=== PATIENT | male | born 1945 | race Two or more races ===

== ENCOUNTER 2022-10-24 22:51 | Emergency (ER) | payer SELFPAY ==
[~2022-10-24] VITALS: Ht 180.3 cm; Wt 74.0 kg
[2022-10-24 23:11] VITALS: BP 148/65
[2022-10-25] MEDS ORDERED: LIDOCAINE HCL/PF 1% 10 MG/ML 5ML VIAL INFIL ONE (02:15)
[2022-10-25] MEDS ORDERED: ACETAMINOPHEN 325MG TABLET PO ONE (02:15)
[2022-10-25] MEDS ORDERED: BACITRACIN ZINC OINT UDPKT TOP ONE (02:15)
[2022-10-25] MEDS ORDERED: TETANUS, DIPHTHERIA, PERTUSSIS VAC/PF 0.5ML (>10YR OLD) IM ONE (02:15)
[2022-10-25] MEDS ORDERED: TOPUD PO (02:52)
== END 2022-10-25 03:50 | disposition home or self-care (01) ==
LOC: ER 22:51
DX: S61.012A Laceration without foreign body of left thumb without damage to nail, initial encounter (principal); X58.XXXA Exposure to other specified factors, initial encounter; Y93.89 Activity, other specified; Y92.89 Other specified places as the place of occurrence of the external cause; Y99.8 Other external cause status; I10 Essential (primary) hypertension
CPT/HCPCS: 90471; 90715; 99283; J3490; Z7610

== ENCOUNTER 2022-10-27 15:35 | Emergency (ER) | payer SELFPAY ==
[~2022-10-27] VITALS: Ht 180.3 cm; Wt 74.0 kg
[~2022-10-27 15:35] MED LIST: TOPUD PO
[2022-10-27 15:51] VITALS: BP 141/68
[2022-10-27] MEDS ORDERED: BACITRACIN ZINC OINT UDPKT TOP ONE (17:15)
== END 2022-10-27 17:46 | disposition home or self-care (01) ==
LOC: ER 15:35
DX: S61.412D Laceration without foreign body of left hand, subsequent encounter (principal); X58.XXXD Exposure to other specified factors, subsequent encounter; I10 Essential (primary) hypertension
CPT/HCPCS: 99282